=== PATIENT | female | born 1975 | race Caucasian/White ===

== ENCOUNTER 2018-06-02 12:09 | Outpatient (CLI) | payer OTHER ==
--- NOTE | 2018-06-02 16:54 | XRAY Report ---
Reason: HIP BACK PAIN Procedure Date: 06/02/2018 Accession Number: [id number] / [id number] Procedure: XR - Hip w/Pelvis 2-3V RT CPT Code: FULL RESULT: EXAM: RIGHT HIP AND PELVIS RADIOGRAPHY EXAM DATE: 06/02/2018 12:26 PM. HISTORY: Hip and back pain. COMPARISONS: None. TECHNIQUE: 1 view of the pelvis and 1 view of the hip. FINDINGS: Bones: No acute fracture. No osseous lesion. Joints: No dislocation or subluxation. No significant degenerative change in the hips. Soft Tissues: Small phlebolith demonstrated in the right hemipelvis. Visualized bowel gas pattern is unremarkable. IMPRESSION: 1. No acute osseous or articular abnormality. 2. No significant degenerative change in the hips. [facility]
--- NOTE | 2018-06-02 17:12 | XRAY Report ---
Reason: HIP AND BACK PAIN Procedure Date: 06/02/2018 Accession Number: [id number] / [id number] Procedure: XR - Lumbar Spine 2 View CPT Code: FULL RESULT: EXAM: LUMBOSACRAL SPINE RADIOGRAPHY EXAM DATE: 06/02/2018 12:26 PM. CLINICAL HISTORY: HIP AND BACK PAIN. COMPARISONS: None. TECHNIQUE: 3 views. FINDINGS: Alignment: There is slight apex right curvature of the lumbar spine. No significant spondylolisthesis. Bones: Five [id number] lumbar vertebral bodies are present. No acute fracture. Disks: Mild disk height loss at L5-S1. Disk heights elsewhere are relatively well maintained. Facets: Mild bilateral facet degeneration L5-S1. Sacroiliac Joints: Unremarkable. Soft Tissues: The visualized bowel gas pattern is unremarkable. IMPRESSION: 1. Mild degenerative disk disease and facet degeneration at L5-S1. 2. Slight apex right curvature of the lumbar spine. [facility]
== END 2018-06-02 12:10 | disposition home or self-care (01) ==
LOC: DI 12:09
PROVIDERS: ATTEND Internal Medicine
DX: M25.551 Pain in right hip (principal); M47.9 Spondylosis, unspecified; M51.37 Other intervertebral disc degeneration, lumbosacral region
CPT/HCPCS: 72100

== ENCOUNTER 2018-06-04 10:02 | Emergency (ER) | payer OTHER ==
--- NOTE | 2018-06-04 11:34 | ED Physician Documentation ---
PD HPI CHEST PAIN - Stated complaint Stated Complaint: CHEST TIGHTNESS - Chief complaint Chief Complaint: Cardiac - History obtained from History obtained from: Patient - History of Present Illness Timing - onset: How many days ago (3) Timing - onset during: Rest Timing - duration: Days (3) Timing - details: Gradual onset, Still present Quality: Pressure Location: Substernal Radiation: No: Jaw, Neck Improved by: Other (deep breath) Worsened by: Inspiration, Palpation Associated symptoms: Shortness of air. No: Diaphoresis, Nausea, Vomiting, Feeling faint / dizzy, General Weakness, Palpitations, Cough Similar symptoms before: Has not had sx before Recently seen: Not recently seen - Additional information Additional information: Previously well 43-year-old female has developed a sore throat and fever this is now resolved and she is developed some chest pain. She states the pain is worse if she takes a deep breath patient states the pain is aching in the anterior chest and she feels that if she does take a deep breath she can get some relief of this pain. She states the pain is coming in episodes that are brief and intense and otherwise she has tenderness to the chest wall. Review of Systems Constitutional: reports: Fever (resolved) Eyes: denies: Decreased vision Ears: denies: Ear pain Nose: reports: Congestion Throat: reports: Sore throat (improved) Cardiac: reports: Chest pain / pressure. 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 - Present Medications Home Medications: Ambulatory Orders Medication Instructions Recorded Confirmed No Known Home Medications 06/04/18 06/04/18 - Allergies Allergies/Adverse Reactions: Allergies Allergy/AdvReac Type Severity Reaction Status Date / Time No Known Drug Allergies Allergy Verified 06/04/18 11:19 - Social History Does the pt smoke?: No Smoking Status: Never smoker Does the pt drink ETOH?: Yes Does the pt have substance abuse?: No - Immunizations Immunizations are current?: Yes Immunizations: TDAP current <10years - POLST Patient has POLST: No PD ED PE NORMAL - Vitals Vital signs reviewed: Yes (hypertensive mild ) - General General: Alert and oriented X 3, No acute distress, Well developed/nourished - HEENT HEENT: Atraumatic, PERRL, EOMI, Ears normal, Moist mucous membranes, Pharynx benign, Dentition benign - Neck Neck: Supple, no meningeal sign, No bony TTP - Cardiac Cardiac: RRR, No murmur - Respiratory Respiratory: No respiratory distress, Clear bilaterally, Other (anterior chest wall tenderness ) - Abdomen Abdomen: Soft, Non tender - Back Back: No CVA TTP, No spinal TTP - Derm Derm: Normal color, Warm and dry, No rash - Extremities Extremities: No deformity, No edema - Neuro Neuro: Alert and oriented X 3, 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, No motor deficit, No sensory deficit, Normal speech Eye Opening: Spontaneous Motor: Obeys Commands Verbal: Oriented GCS Score: 15 - Psych Psych: Normal mood, Normal affect Results - Vitals Vitals: Vital Signs - 24 hr 06/04/18 06/04/18 06/04/18 10:04 10:35 11:20 Temperature 36.5 C 36.9 C Heart Rate 91 76 71 Respiratory 15 18 20 Rate Blood Pressure 147/85 H 130/91 H 125/88 H O2 Saturation 100 99 20 L Oxygen O2 Source Room air - EKG (time done) 1013 Rate: Rate (enter#) (69) Rhythm: NSR Ischemia: Non specific changes Compare to prior EKG: Old EKG unavailable Computer interpretation: Agree with computer - Labs Labs: Laboratory Tests 06/04/18 06/04/18 06/04/18 11:00 11:00 11:00 WBC 8.3 RBC 4.51 Hgb 13.4 Hct 39.9 MCV 88.6 MCH 29.8 MCHC 33.6 RDW 13.0 Plt Count 387 MPV 7.8 L Neut # (Auto) 4.9 Lymph # (Auto) 2.9 [place] # (Auto) 0.5 Eos # (Auto) 0.1 Baso # (Auto) 0.0 Absolute Nucleated RBC 0.01 Nucleated RBC % 0.1 Sodium 134 L Potassium 3.7 Chloride 99 L Carbon Dioxide 28 Anion Gap 7.0 BUN 17 Creatinine 0.8 Estimated GFR (MDRD) 79 L Glucose 98 Calcium 8.7 Total Bilirubin 1.0 AST 15 ALT 15 Alkaline Phosphatase 46 Troponin I < 0.04 Total Protein 8.1 Albumin 4.0 Globulin 4.1 Albumin/Globulin Ratio 1.0 Lipase 27 - Rads (name of study) 1 veiw chest Radiology: Prelim report reviewed (Impression: Normal single view chest.), EMP read indepedently, See rad report PD MEDICAL DECISION MAKING - ED course Complexity details: reviewed results, re-evaluated patient, considered differential, d/w patient ED course: 43-year-old female with anterior chest pain is reproducible with palpation consistent with costochondritis has had an upper respiratory tract infection that now appears resolved I suspect this is residual from this infection. She is administered dexamethasone 10 mg orally and intravenous Toradol. There are no new findings on workup. Departure - Departure Disposition: 01 Home, Self Care Clinical Impression: Costochondritis, acute Condition: Stable Instructions: ED Chest Pain Costochondritis Follow-Up: eZn Hernandez MD [Primary Care Provider] -
[2018-06-04 11:37] LABS: BASOPHILS % (AUTO) 0.5 %; EOSINOPHILS # (AUTO) 0.1 10^3/uL (0.0-0.7); EOSINOPHILS % (AUTO) 0.7 %; HGB - HEMOGLOBIN 13.4 g/dL (12.0-16.0); LYMPHOCYTES # (AUTO) 2.9 10^3/uL (1.5-3.5); LYMPHOCYTES % (AUTO) 34.9 %; MEAN CORPUSCULAR HEMOGLOBIN 29.8 pg (27.0-31.0); MEAN CORPUSCULAR HGB CONC 33.6 g/dL (32.0-36.0); MEAN CORPUSCULAR VOLUME 88.6 fL (81.0-99.0); MEAN PLATELET VOLUME 7.8 fL (7.9-10.8); MONOCYTES # (AUTO) 0.5 10^3/uL (0.0-1.0); MONOCYTES % (AUTO) 5.7 %; NEUTROPHILS # (AUTO) 4.9 10^3/uL (1.5-6.6); NEUTROPHILS % (AUTO) 58.2 %; PLT - PLATELET COUNT 387 10^3/uL (130-450); RED BLOOD COUNT 4.51 10^6/uL (4.20-5.40); WHITE BLOOD COUNT 8.3 x10^3/uL (4.8-10.8)
[2018-06-04] MEDS: KETOROLAC 60 MG/2 ML VIAL IVP STA (11:38)
[2018-06-04] MEDS: DEXAMETHASONE 10 MG/ML VIAL IVP STA (11:39)
[2018-06-04 11:51] LABS: CALCIUM 8.7 mg/dL (8.5-10.3); CREATININE 0.8 mg/dL (0.4-1.0); TOTAL PROTEIN 8.1 g/dL (6.7-8.2)
--- NOTE | 2018-06-04 11:58 | XRAY Report ---
Reason: chest pain Procedure Date: 06/04/2018 Accession Number: [id number] / [id number] Procedure: XR - Chest 1 View X-Ray CPT Code: 46817 FULL RESULT: EXAM: CHEST RADIOGRAPHY EXAM DATE: 06/04/2018 11:47 AM. CLINICAL HISTORY: Chest pain. COMPARISON: None. TECHNIQUE: 1 view. FINDINGS: Lungs/Pleura: No focal opacities evident. No pleural effusion. No pneumothorax. Mediastinum: Within exam limitations, the cardiomediastinal contour is normal. Other: None. IMPRESSION: Normal single view chest. [facility]
[2018-06-04 12:25] VITALS: BP 120/87
== END 2018-06-04 12:30 | disposition home or self-care (01) ==
LOC: ED 10:02
DX: M94.0 Chondrocostal junction syndrome [Tietze] (principal)
CPT/HCPCS: 36415; 71045; 80053; 83690; 84484; 85025; 93005; 96374; 96375; 99283